=== PATIENT | female | born 1930 | race Caucasian/White ===

== ENCOUNTER 2016-04-12 12:45 | Outpatient (CLI) | payer MEDICARE, OTHER | END 2016-04-12 12:46 | LOC: POD 12:45 | PROVIDERS: ATTEND Podiatrist | DX: B35.1 Tinea unguium (principal); M79.674 Pain in right toe(s); M79.675 Pain in left toe(s) | CPT/HCPCS: 11721; G0463 ==

== ENCOUNTER 2016-06-28 13:12 | Outpatient (CLI) | payer MEDICARE, OTHER | END 2016-06-28 13:13 | LOC: POD 13:12 | PROVIDERS: ATTEND Podiatrist | DX: B35.1 Tinea unguium (principal); M79.674 Pain in right toe(s); M79.675 Pain in left toe(s) | CPT/HCPCS: 11721; G0463 ==

== ENCOUNTER 2016-09-27 13:20 | Outpatient (CLI) | payer MEDICARE, OTHER | END 2016-09-27 13:21 | LOC: POD 13:20 | PROVIDERS: ATTEND Podiatrist | DX: B35.1 Tinea unguium (principal); M79.674 Pain in right toe(s); M79.675 Pain in left toe(s) | CPT/HCPCS: 11721; G0463 ==

== ENCOUNTER 2016-10-10 16:23 | Outpatient (CLI) | payer MEDICARE, OTHER | END 2016-10-10 16:24 | LOC: LABRHC 16:23 | PROVIDERS: ATTEND Family Medicine | DX: R30.0 Dysuria (principal) | CPT/HCPCS: 87086; 87186 ==

== ENCOUNTER 2016-10-18 10:40 | Outpatient (CLI) | payer MEDICARE, OTHER ==
[2016-10-18 11:47] LABS: eGFR (African) > 60; eGFR (Non-African) > 60
== END 2016-10-18 10:45 ==
LOC: RAD 10:40
PROVIDERS: ATTEND Family Medicine
DX: I10 Essential (primary) hypertension (principal); M81.0 Age-related osteoporosis without current pathological fracture
CPT/HCPCS: 36415; 77080; 80048

== ENCOUNTER 2016-12-27 13:45 | Outpatient (CLI) | payer MEDICARE, OTHER | END 2016-12-27 13:50 | LOC: POD 13:45 | PROVIDERS: ATTEND Podiatrist | DX: B35.1 Tinea unguium (principal); M79.674 Pain in right toe(s); M79.675 Pain in left toe(s) | CPT/HCPCS: 11721; G0463 ==

== ENCOUNTER 2017-03-28 13:31 | Outpatient (CLI) | payer MEDICARE, OTHER | END 2017-03-28 13:32 | LOC: POD 13:31 | PROVIDERS: ATTEND Podiatrist | DX: B35.1 Tinea unguium (principal); M79.674 Pain in right toe(s); M79.675 Pain in left toe(s) | CPT/HCPCS: 11721; G0463 ==

== ENCOUNTER 2017-05-29 10:48 | Outpatient (CLI) | payer MEDICARE, OTHER ==
[2017-05-29 11:32] LABS: eGFR (African) > 60; eGFR (Non-African) > 60
== END 2017-05-29 10:50 ==
LOC: LAB 10:48
PROVIDERS: ATTEND Family Medicine
DX: I10 Essential (primary) hypertension (principal)
CPT/HCPCS: 36415; 80053

== ENCOUNTER 2017-06-27 14:12 | Outpatient (CLI) | payer MEDICARE, OTHER | END 2017-06-27 14:13 | LOC: POD 14:12 | PROVIDERS: ATTEND Podiatrist | DX: B35.1 Tinea unguium (principal); M79.674 Pain in right toe(s); M79.675 Pain in left toe(s) | CPT/HCPCS: 11721; G0463 ==

== ENCOUNTER 2017-09-26 13:20 | Outpatient (CLI) | payer MEDICARE, OTHER | END 2017-09-26 13:21 | LOC: POD 13:20 | PROVIDERS: ATTEND Podiatrist | DX: B35.1 Tinea unguium (principal); M79.674 Pain in right toe(s); M79.675 Pain in left toe(s) | CPT/HCPCS: 11721; G0463 ==